=== PATIENT | male | born 1950 | race Caucasian/White ===

== ENCOUNTER 2020-12-11 12:50 | Outpatient (CLI) | payer MEDICARE ==
[2020-12-14] MEDS ORDERED: METF500T17 PO (13:29)
[2020-12-14] MEDS ORDERED: ATEN25TA PO (13:29)
[2020-12-14] MEDS ORDERED: ISOS30TA8 PO (13:29)
[2020-12-14] MEDS ORDERED: ATOR40TA78 PO (13:29)
[2020-12-14] MEDS ORDERED: ASPI81TA45 PO (13:29)
[2020-12-15] MEDS ORDERED: HYDR-3342 PO (05:00)
[2020-12-15] MEDS ORDERED: NITR0.4T28 SL (05:00)
[2020-12-20] MEDS ORDERED: LISI5TAB7 PO (11:18)
[2020-12-20] MEDS ORDERED: POTA20TA6 PO (11:18)
[2020-12-20] MEDS ORDERED: CLOP75TA PO (11:18)
[2020-12-20] MEDS ORDERED: METO25TA35 PO/NG (11:18)
[2020-12-20] MEDS ORDERED: ATOR-2 PO (11:18)
[2020-12-20] MEDS ORDERED: HYDR-3245 PO (11:18)
[2020-12-20] MEDS ORDERED: FURO-92 PO (11:18)
== END 2020-12-11 23:59 | disposition home or self-care (01) ==
LOC: STAR 12:50
PROVIDERS: ATTEND Thoracic Surgery (Cardiothoracic Vascular Surgery)
DX: Z20.822 Contact with and (suspected) exposure to COVID-19 (principal)
CPT/HCPCS: 87635